=== PATIENT | male | born 1970 | race African-American/Black ===

== ENCOUNTER 2016-12-11 13:42 | Emergency (ER) | payer OTHER ==
[~2016-12-11 13:42] MED LIST: ALLOPURINOL300 MG PO; ASPIRIN81 M1 PO; BACTRIM DS TABL1 TA1 PO; CHEWABLE ASPIRI81 MG PO; COLCHICINE0.6 M1 PO; COLCRYS0.6 MG PO; COREG3.125 MG PO; HYDROCODON-ACE1 EAC7 PO; K-DUR20 ME1 PO; LASIX PO; LIPITOR20 MG PO; LISINOPRIL PO; LISINOPRIL20 MG PO; METOPROLOL TAR25 MG PO; NAPROSYN500 MG PO; NAPROXEN PO; NORCO 5/325 TAB1 TAB PO; NORVASC10 MG PO; PERCOCET5/325 PO; VICODIN 5/1 TAB 5/50 PO; ZYLOPRIM PO
== END 2016-12-11 13:58 | disposition home or self-care (01) ==
LOC: CFTX 13:42
DX: M10.9 Gout, unspecified (principal); I10 Essential (primary) hypertension; Z98.890 Other specified postprocedural states; Z88.1 Allergy status to other antibiotic agents
CPT/HCPCS: 99282; J1885

== ENCOUNTER 2017-01-03 15:47 | Emergency (ER) | payer OTHER | END 2017-01-03 16:30 | disposition home or self-care (01) | LOC: CFTX 15:47 | DX: M10.9 Gout, unspecified (principal); I10 Essential (primary) hypertension; M10.062 Idiopathic gout, left knee; Z88.0 Allergy status to penicillin | CPT/HCPCS: 99283 ==

== ENCOUNTER 2017-04-09 11:32 | Emergency (ER) | payer OTHER ==
[~2017-04-09] VITALS: Ht 180.3 cm; Wt 96.6 kg
--- NOTE | ~2017-04-09 | CR72 ---
[facility] A Service of [facility] & [facility] RADIOLOGY TEXT RESULTS PATIENT: JONNY GOOD LOCATION: [facility] : [birth year] UNIT #: [id number] AGE: [address]: Janette Tidwell MD SEX: M ORDER DR: [id number] [address] [place] [id number] [facility]. [place], [place] [address] [id number] E MR#: [id number] Acc #: [id number] NAME: JONNY GOOD : 1970 SEX: M STUDY DATE/TIME: 04/09/2017 16:34 UNIT: [facility] ROOM: STUDY DESCRIPTION: CR Chest Single View Portable Attending Physician: Janette Tidwell M.D. Ordering Physician: Janette Tidwell M.D. Primary Care Physician: No Primary Care Physician MEDICAL IMAGING REPORT This report is preliminary unless electronic signature is present EXAM Portable chest. INDICATIONS Cough and chest pain since yesterday. COMPARISON 12/29/2016 FINDINGS The lungs are well expanded. No airspace consolidation. Heart size normal. Visualized osseous structures unremarkable. IMPRESSION No active disease. Dictated by... Amari Welch M.D. THIS IS AN ELECTRONICALLY VERIFIED REPORT Amari Welch M.D. at 04/12/2017 12:15 PM ESTEFANY/noemy TD: 04/09/2017 22:47 JOB #: [id number] MEDICAL IMAGING REPORT Page 1 of 1 COPY
[2017-04-09 15:18] LABS: BASOPHIL# 0.1 X10e3 (0-0.3); BASOPHIL% 1.1 % (0-2.5); EOSINOPHIL# 0.1 X10e3 (0-0.7); EOSINOPHIL% 0.6 % (0.0-7.0); HEMATOCRIT 41.9 % (38.0-50.0); HEMOGLOBIN 14.1 gm/dL (13.0-16.0); LYMPHOCYTE# 3.4 X10e3 (1.0-3.5); LYMPHOCYTE% 28.4 % (17.0-45.0); MEAN CELL VOLUME 87.3 FL (83-96); MEAN CORPUSCULAR HEMOGLOBIN 29.3 PG (28-34); MEAN CORPUSCULAR HGB CONC 33.6 g/dL (30-36); MONOCYTE# 1.5 X10e3 (0-1.0); MONOCYTE% 12.3 % (3.0-12.0); NEUTROPHIL# 6.9 X10e3 (1.5-7.1); NEUTROPHIL% 57.6 % (40-75); PLATELET COUNT 351 X10e3 (140-420); RED CELL DISTRIBUTION WIDTH 17.4 % (11.0-15.5)
[2017-04-09 15:20] LABS: DIFF IND NO
[2017-04-09 15:43] LABS: CALCIUM SERUM 9.6 mg/dL (8.4-10.2); CREATININE SERUM 1.3 mg/dL (0.6-1.4); GLOM FILT RATE Estimated 75.3 mL/min (>60); POTASSIUM 3.9 mmol/L (3.5-5.1); URIC ACID 9.9 mg/dL (2.6-7.2)
== END 2017-04-09 17:00 | disposition home or self-care (01) ==
LOC: CED 11:32
PROVIDERS: Emergency Medicine
DX: M10.9 Gout, unspecified (principal); I10 Essential (primary) hypertension; Z88.0 Allergy status to penicillin
CPT/HCPCS: 36415; 71010; 80048; 84550; 85025; 85652; 96374; 99283; J1885

== ENCOUNTER 2017-05-14 08:42 | Emergency (ER) | payer OTHER ==
[~2017-05-14] VITALS: Ht 180.3 cm; Wt 94.8 kg
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
--- NOTE | ~2017-05-14 | CR126 ---
[facility] A Service of [facility] & [facility] RADIOLOGY TEXT RESULTS PATIENT: JONNY GOOD LOCATION: [facility] : [birth year] UNIT #: [id number] AGE: [address]: Aga Wells SEX: M ORDER DR: [id number] [facility] [address] [place], [place] [address] [id number] E MR#: [id number] Acc #: [id number] NAME: JONNY GOOD : 1970 SEX: M STUDY DATE/TIME: 05/14/2017 09:18 UNIT: [facility] ROOM: STUDY DESCRIPTION: CR Foot Complete Min 3 View Lt Attending Physician: Aga Wells Pa-C Ordering Physician: Ed Doctor [id number] [facility] Primary Care Physician: Primary Care Physician No MEDICAL IMAGING REPORT This report is preliminary unless electronic signature is present EXAM Left foot 3 views 05/14/2017 0918 hours HISTORY Patient complains of 2-day history of left foot pain and swelling with no known injury. COMPARISON 08/07/2013. FINDINGS AP, lateral and oblique views demonstrate dorsal soft tissue swelling over the tarsal bones focally. This is new from 08/07/2013. On the oblique view, this appears to project medially over the navicular. There is some scalloping of the cortex of the medial navicular and dorsal navicular where lucency is seen where previously only faint lucency was seen. This finding is of uncertain significance. Osteomyelitis cannot be excluded. Question whether an ulcer is present in this area. No fracture is seen. IMPRESSION 1. There is focal dorsal medial soft tissue swelling over the tarsal bones near the navicular. There is some scalloping of the bones seen medially similar to 08/07/2013 with lucency seen in the dorsal aspect of the navicular suggesting subtle change from 08/07/2013. This is a nonspecific finding. If the patient has a skin lesion then this would raise concern for osteomyelitis. 2. Mild degenerative change at the first MTP joint. Dictated by... Rossi Call M.D. THIS IS AN ELECTRONICALLY VERIFIED REPORT [facility] A Service of [facility] & [facility] RADIOLOGY TEXT RESULTS PATIENT: JONNY GOOD [id number] [birth year] UNIT #: [id number] AGE: [address]: Aga Wells SEX: M ORDER DR: Rossi Call M.D. at 05/14/2017 2:32 PM REYES/tequila TD: 05/14/2017 12:44 JOB #: [id number] MEDICAL IMAGING REPORT Page 1 of 1 COPY
[2017-05-14 10:53] LABS: BASOPHIL# 0.1 X10e3 (0-0.3); BASOPHIL% 0.9 % (0-2.5); EOSINOPHIL% 0.4 % (0.0-7.0); HEMATOCRIT 40.7 % (38.0-50.0); HEMOGLOBIN 13.4 gm/dL (13.0-16.0); LYMPHOCYTE# 2.4 X10e3 (1.0-3.5); LYMPHOCYTE% 20.3 % (17.0-45.0); MEAN CELL VOLUME 88.1 FL (83-96); MEAN CORPUSCULAR HGB CONC 32.9 g/dL (30-36); MEAN PLATELET VOLUME 8.6 FL (6.5-11.5); MONOCYTE% 8.1 % (3.0-12.0); NEUTROPHIL# 8.3 X10e3 (1.5-7.1); NEUTROPHIL% 70.3 % (40-75); PLATELET COUNT 373 X10e3 (140-420); RED BLOOD COUNT 4.62 X10e (3.90-5.60); RED CELL DISTRIBUTION WIDTH 16.5 % (11.0-15.5); WHITE BLOOD COUNT 11.8 X10e3 (4.0-10.5)
[2017-05-14 10:54] LABS: DIFF IND NO
[2017-05-14 11:16] LABS: ALBUMIN SERUM 4.1 g/dL (3.5-5.0); BILIRUBIN,TOTAL 0.7 mg/dL (0.2-2.0); BUN/CREATININE RATIO 7.14; CALCIUM SERUM 9.1 mg/dL (8.4-10.2); CREATININE SERUM 1.4 mg/dL (0.6-1.4); GLOM FILT RATE Estimated 68.4 mL/min (>60); POTASSIUM 4.1 mmol/L (3.5-5.1); URIC ACID 10.8 mg/dL (2.6-7.2)
== END 2017-05-14 13:49 | disposition home or self-care (01) ==
LOC: CED 08:42
PROVIDERS: Physician Assistant
DX: M10.9 Gout, unspecified (principal); I10 Essential (primary) hypertension; Z88.0 Allergy status to penicillin
CPT/HCPCS: 36415; 71010; 73630; 80053; 84550; 85025; 85652; 86140; 96372; 99284; J1885